=== PATIENT | male | born 1930 | race Caucasian/White ===

== ENCOUNTER 2016-11-11 08:44 | Emergency (ER) | payer OTHER ==
[2016-11-11 09:16] VITALS: TEMP 96
[2016-11-11 09:45] VITALS: BP 168/80; PULSE 75; RESP 18; O2SAT 94
== END 2016-11-11 09:40 | disposition home or self-care (01) | DRG 696 ==
LOC: ED 08:44
DX: R33.9 Retention of urine, unspecified (principal)
CPT/HCPCS: 51798; 99283

== ENCOUNTER 2017-05-17 19:18 | Inpatient (IN) | payer OTHER ==
[2017-05-17] MEDS ORDERED: ALBUTEROL/IPRATROPIUM 1 VIAL SOL INH ONE (19:51)
[2017-05-17] MEDS ORDERED: ALBUTEROL/IPRATROPIUM 1 VIAL SOL ONE (19:52)
[2017-05-17 20:04] LABS: BASOPHILS % (AUTO) 1 % (0-3); EOSINOPHILS % (AUTO) 1 % (0-9); HEMATOCRIT 37 % (39-53); MEAN CORPUSCULAR HGB CONC 33.9 gm/dl (32.0-36.0); MEAN CORPUSCULAR VOLUME 85 fL (80-100); MONOCYTES % (AUTO) 8.6 % (0-12); NEUTROPHILS % (AUTO) 80.7 % (37-80)
[2017-05-17 20:18] LABS: ALBUMIN 3.3 gm/dl (3.4-5.0); CALCIUM 8.1 mg/dl (8.5-10.1); POTASSIUM 4.1 mMol/L (3.5-5.1)
[2017-05-17] MEDS ORDERED: ALBUTEROL NEB 1.25 MG/3 ML SOL INH PRN (21:27)
[2017-05-17] MEDS ORDERED: TDAP VACCINE 0.5 ML SUS IM ONE (21:29)
[2017-05-17] MEDS ORDERED: ONDANSETRON 4 MG ODT BU PRN (21:32)
[2017-05-17] MEDS: TAMSULOSIN HYDROCHLORIDE 0.4 MG CAP PO SCH (22:20)
[2017-05-17] MEDS: SOLUMEDROL 125 MG/2 ML 125 MG/2 ML PDS IV SCH (22:20)
[2017-05-17] MEDS: ACETAMINOPHEN 325 MG PO PRN (22:28)
[2017-05-18] MEDS ORDERED: ALBUTEROL NEB SOL 2.5MG/3ML 1 VIAL SOL ONE (02:33)
[2017-05-18] MEDS: ALBUTEROL NEB SOL 2.5MG/3ML 1 VIAL SOL NEB PRN ×3 (02:38→15:54)
[2017-05-18] MEDS ORDERED: FUROSEMIDE 20mg SOL IV ONE (09:06)
[2017-05-18] MEDS: SOLUMEDROL 125 MG/2 ML 125 MG/2 ML PDS IV SCH (09:15)
[2017-05-18] MEDS: SODIUM CHLORIDE 0.9% FLUSH 10 ML SOL IV SCH ×2 (09:23→17:39)
[2017-05-18] MEDS: BUDESONIDE/FORMOTEROL 160/4.5 AER INH SCH (09:51)
[2017-05-18] MEDS: TIOTROPIUM BROMIDE 18 MCG CAP INH SCH (09:51)
[2017-05-18] MEDS: PREDNISONE 20 MG TAB PO SCH (09:53)
[2017-05-18 13:31] LABS: CALCIUM 8.5 mg/dl (8.5-10.1); POTASSIUM 3.9 mMol/L (3.5-5.1)
[2017-05-18] MEDS: NOVOLOG FLEXPEN SC SCH ×2 (17:40→20:49)
[2017-05-18] MEDS: TAMSULOSIN HYDROCHLORIDE 0.4 MG CAP PO SCH (20:44)
[2017-05-18] MEDS: ACETAMINOPHEN 325 MG PO PRN (20:45)
[2017-05-19 01:18] VITALS: TEMP 97.7
[2017-05-19] MEDS: ALBUTEROL NEB SOL 2.5MG/3ML 1 VIAL SOL NEB PRN (04:29)
[2017-05-19] MEDS: SODIUM CHLORIDE 0.9% FLUSH 10 ML SOL IV SCH ×2 (04:39→11:07)
[2017-05-19] MEDS: NOVOLOG FLEXPEN SC SCH ×2 (06:54→11:54)
[2017-05-19 07:14] LABS: CALCIUM 8.1 mg/dl (8.5-10.1); POTASSIUM 4.3 mMol/L (3.5-5.1)
[2017-05-19 07:21] LABS: BASOPHILS % (AUTO) 0 % (0-3); EOSINOPHILS % (AUTO) 0 % (0-9); HEMATOCRIT 38 % (39-53); MEAN CORPUSCULAR HGB CONC 34.4 gm/dl (32.0-36.0); MEAN CORPUSCULAR VOLUME 87 fL (80-100); MONOCYTES % (AUTO) 10.6 % (0-12); NEUTROPHILS % (AUTO) 75.3 % (37-80)
[2017-05-19 08:32] VITALS: BP 124/76; PULSE 79; RESP 16
[2017-05-19] MEDS: PREDNISONE 20 MG TAB PO SCH (08:48)
[2017-05-19] MEDS: BUDESONIDE/FORMOTEROL 160/4.5 AER INH SCH (08:49)
[2017-05-19] MEDS: TIOTROPIUM BROMIDE 18 MCG CAP INH SCH (08:50)
[2017-05-19] MEDS ORDERED: PNEUMOC 13-VAL CONJ-DIP CRM/PF 0.5 ML SYRINGE IM ONE (11:50)
[2017-05-19 12:01] VITALS: O2SAT 89
== END 2017-05-19 13:10 | disposition home or self-care (01) | DRG 191 ==
LOC: ED 19:18 → UNDOADMIN 20:39 → ACUTE CARE 20:39
PROVIDERS: ADMIT Family Medicine; ATTEND Family Medicine
PROC: 2W3CX1Z Immobilization of Right Lower Arm using Splint (ICD-10-PCS; principal; 2017-05-18)
DX: J44.1 Chronic obstructive pulmonary disease with (acute) exacerbation (principal); S42.411A Displaced simple supracondylar fracture without intercondylar fracture of right humerus, initial encounter for closed fracture; E11.65 Type 2 diabetes mellitus with hyperglycemia; J06.9 Acute upper respiratory infection, unspecified; S01.112A Laceration without foreign body of left eyelid and periocular area, initial encounter; W19.XXXA Unspecified fall, initial encounter
CPT/HCPCS: 36415; 71045; 73070; 80048; 80053; 82962; 85025; 90715; 93005; 94150; 94640; 94760; 99222; 99284; J1940; J2930; J7603; J7620; A6232; A6402; J1815

== ENCOUNTER 2017-05-25 09:00 | Outpatient (CLI) | payer OTHER | END 2017-05-25 09:01 | disposition home or self-care (01) | DRG 561 | LOC: CONVCARE 09:00 | PROVIDERS: ATTEND Orthopaedic Surgery | DX: S42.411D Displaced simple supracondylar fracture without intercondylar fracture of right humerus, subsequent encounter for fracture with routine healing (principal) | CPT/HCPCS: 73070 ==

== ENCOUNTER 2017-06-22 09:26 | Outpatient (CLI) | payer OTHER | END 2017-06-22 09:27 | disposition home or self-care (01) | DRG 561 | LOC: CONVCARE 09:26 | PROVIDERS: ATTEND Orthopaedic Surgery | DX: S42.411D Displaced simple supracondylar fracture without intercondylar fracture of right humerus, subsequent encounter for fracture with routine healing (principal) | CPT/HCPCS: 73070 ==

== ENCOUNTER 2017-08-21 10:03 | Inpatient (IN) | payer OTHER ==
[2017-08-21] MEDS ORDERED: FUROSEMIDE 20mg SOL IV ONE (10:30)
[2017-08-21 10:54] LABS: HEMATOCRIT 39 % (39-53); HEMOGLOBIN 12.5 gm/dl (13.5-17.7); MEAN CORPUSCULAR HEMOGLOBIN 27.7 pg (27.0-32.0); MEAN CORPUSCULAR HGB CONC 32.3 gm/dl (32.0-36.0); MEAN CORPUSCULAR VOLUME 86 fL (80-100)
[2017-08-21 11:01] LABS: ALBUMIN 3.3 gm/dl (3.4-5.0); BILIRUBIN,TOTAL 0.8 mg/dl (0.2-1.0); CALCIUM 8.2 mg/dl (8.5-10.1); CARBON DIOXIDE 25.3 mEq/L (21-32); CREATININE 1.34 mg/dl (0.80-1.30); TOTAL PROTEIN 6.6 gm/dl (6.4-8.2); TROP I 0.059 ng/ml (0.000-0.056)
[2017-08-21 11:22] LABS: ANISOCYTOSIS SLIGHT AMT; BAND NEUTROPHILS % (MANUAL) 7 %; BASOPHILS % (MANUAL) 0 % (0-3); EOSINOPHILS % (MANUAL) 0 % (0-9); MONOCYTES % (MANUAL) 10 % (0-12); NEUTROPHILS % (MANUAL) 61 % (37-80); OVALOCYTES PRESENT; POIKILOCYTOSIS SLIGHT AMT
[2017-08-21 11:23] LABS: LYMPHOCYTES % (MANUAL) 22 % (10-50)
[2017-08-21] MEDS: SODIUM CHLORIDE 0.9% FLUSH 10 ML SOL IV SCH ×3 (11:26→18:50)
[2017-08-21] MEDS ORDERED: FUROSEMIDE 20mg SOL IV SCH (15:30)
[2017-08-21] MEDS: ALBUTEROL HFA 60 PUFF/INHALER INH PRN (16:16)
[2017-08-21] MEDS ORDERED: TEMAZEPAM 7.5 MG CAP PO PRN (18:33)
[2017-08-21] MEDS: TAMSULOSIN HYDROCHLORIDE 0.4 MG CAP PO SCH (20:41)
[2017-08-21] MEDS: BUDESONIDE/FORMOTEROL 160/4.5 AER INH SCH (20:41)
[2017-08-21] MEDS: TEMAZEPAM 15MG 15 MG CAP PO PRN (21:56)
[2017-08-22] MEDS: SODIUM CHLORIDE 0.9% FLUSH 10 ML SOL IV SCH ×3 (02:28→20:26)
[2017-08-22 07:42] LABS: CALCIUM 8.2 mg/dl (8.5-10.1); CARBON DIOXIDE 30.4 mEq/L (21-32); CREATININE 1.4 mg/dl (0.80-1.30); POTASSIUM 3.6 mMol/L (3.5-5.1)
[2017-08-22] MEDS: FUROSEMIDE 40 MG TAB PO SCH (08:14)
[2017-08-22] MEDS: PANTOPRAZOLE SODIUM 40 MG ECT PO SCH (08:14)
[2017-08-22] MEDS: BUDESONIDE/FORMOTEROL 160/4.5 AER INH SCH ×2 (08:15→20:26)
[2017-08-22] MEDS: TIOTROPIUM BROMIDE 18 MCG CAP INH SCH (08:16)
[2017-08-22] MEDS: ASPIRIN 325 MG TAB PO SCH (08:16)
[2017-08-22] MEDS: MULTIVITAMIN2 1 EA TAB PO SCH (08:16)
[2017-08-22] MEDS ORDERED: METOPROLOL SUCCINATE 50 MG ER TAB PO SCH (09:00)
[2017-08-22] MEDS: METOPROLOL SUCCINATE 50 MG ER TAB PO SCH (09:52)
[2017-08-22] MEDS: FUROSEMIDE 40 MG SOL IV ONE ×2 (10:00→15:14)
[2017-08-22] MEDS ORDERED: FUROSEMIDE 40 MG SOL IV ONE (10:00)
[2017-08-22 18:03] LABS: CALCIUM 8.1 mg/dl (8.5-10.1); CARBON DIOXIDE 31.1 mEq/L (21-32); CREATININE 1.44 mg/dl (0.80-1.30); POTASSIUM 3.7 mMol/L (3.5-5.1)
[2017-08-22] MEDS: TAMSULOSIN HYDROCHLORIDE 0.4 MG CAP PO SCH (20:27)
[2017-08-23] MEDS: ALBUTEROL HFA 60 PUFF/INHALER INH PRN (01:30)
[2017-08-23] MEDS: SODIUM CHLORIDE 0.9% FLUSH 10 ML SOL IV SCH ×4 (05:17→20:32)
[2017-08-23 07:37] LABS: CARBON DIOXIDE 32.7 mEq/L (21-32); CREATININE 1.36 mg/dl (0.80-1.30); POTASSIUM 3.7 mMol/L (3.5-5.1)
[2017-08-23 07:39] LABS: TROP I 0.136 ng/ml (0.000-0.056)
[2017-08-23] MEDS: BUDESONIDE/FORMOTEROL 160/4.5 AER INH SCH ×2 (08:04→20:32)
[2017-08-23] MEDS ORDERED: METOPROLOL SUCCINATE 50 MG TER PO ONE (08:32)
[2017-08-23] MEDS ORDERED: DOCUSATE SODIUM 100 MG SGL PO PRN (08:32)
[2017-08-23] MEDS ORDERED: FUROSEMIDE 20mg SOL IV ONE ×2 (08:32→16:00)
[2017-08-23] MEDS: ASPIRIN 325 MG TAB PO SCH (10:13)
[2017-08-23] MEDS: METOPROLOL SUCCINATE 50 MG ER TAB PO SCH (10:13)
[2017-08-23] MEDS: PANTOPRAZOLE SODIUM 40 MG ECT PO SCH (10:13)
[2017-08-23] MEDS: MULTIVITAMIN2 1 EA TAB PO SCH (10:13)
[2017-08-23] MEDS: FUROSEMIDE 40 MG TAB PO SCH (10:13)
[2017-08-23] MEDS: TIOTROPIUM BROMIDE 18 MCG CAP INH SCH (10:13)
[2017-08-23] MEDS: TEMAZEPAM 15MG 15 MG CAP PO PRN (20:32)
[2017-08-23] MEDS: TAMSULOSIN HYDROCHLORIDE 0.4 MG CAP PO SCH (20:33)
[2017-08-24] MEDS: SODIUM CHLORIDE 0.9% FLUSH 10 ML SOL IV SCH ×3 (07:01→22:40)
[2017-08-24 07:30] LABS: CALCIUM 7.9 mg/dl (8.5-10.1); CARBON DIOXIDE 32.8 mEq/L (21-32); CREATININE 1.43 mg/dl (0.80-1.30); POTASSIUM 3.4 mMol/L (3.5-5.1)
[2017-08-24 07:37] LABS: HEMATOCRIT 38 % (39-53); HEMOGLOBIN 12.2 gm/dl (13.5-17.7); MEAN CORPUSCULAR HEMOGLOBIN 27.4 pg (27.0-32.0); MEAN CORPUSCULAR VOLUME 86 fL (80-100)
[2017-08-24 08:12] LABS: BAND NEUTROPHILS % (MANUAL) 4 %; LYMPHOCYTES % (MANUAL) 40 % (10-50); MONOCYTES % (MANUAL) 8 % (0-12); NEUTROPHILS % (MANUAL) 48 % (37-80)
[2017-08-24 08:13] LABS: ANISOCYTOSIS SLIGHT AMT; BASOPHILS % (MANUAL) 0 % (0-3); EOSINOPHILS % (MANUAL) 0 % (0-9); OVALOCYTES PRESENT; POIKILOCYTOSIS SLIGHT AMT
[2017-08-24] MEDS: FUROSEMIDE 40 MG TAB PO SCH (08:29)
[2017-08-24] MEDS: ASPIRIN 325 MG TAB PO SCH (08:29)
[2017-08-24] MEDS: TIOTROPIUM BROMIDE 18 MCG CAP INH SCH (08:30)
[2017-08-24] MEDS: BUDESONIDE/FORMOTEROL 160/4.5 AER INH SCH ×2 (08:30→20:23)
[2017-08-24] MEDS: PANTOPRAZOLE SODIUM 40 MG ECT PO SCH (08:30)
[2017-08-24] MEDS: MULTIVITAMIN2 1 EA TAB PO SCH (08:30)
[2017-08-24] MEDS ORDERED: METOPROLOL SUCCINATE 50 MG ER TAB PO SCH (08:33)
[2017-08-24] MEDS: METOPROLOL SUCCINATE 50 MG ER TAB PO SCH ×2 (09:45→13:51)
[2017-08-24] MEDS: POTASSIUM CHLORIDE 10 MEQ TER PO SCH ×2 (09:45→20:23)
[2017-08-24] MEDS: TAMSULOSIN HYDROCHLORIDE 0.4 MG CAP PO SCH (20:23)
[2017-08-24] MEDS: TEMAZEPAM 15MG 15 MG CAP PO PRN (21:00)
[2017-08-25] MEDS: SODIUM CHLORIDE 0.9% FLUSH 10 ML SOL IV SCH ×4 (02:38→20:24)
[2017-08-25 07:09] LABS: BASOPHILS % (AUTO) 1 % (0-3); EOSINOPHILS % (AUTO) 2 % (0-9); HEMATOCRIT 39 % (39-53); HEMOGLOBIN 12.7 gm/dl (13.5-17.7); LYMPHOCYTES % (AUTO) 34.2 % (10-50); MEAN CORPUSCULAR HEMOGLOBIN 27.4 pg (27.0-32.0); MEAN CORPUSCULAR HGB CONC 32.2 gm/dl (32.0-36.0); MEAN CORPUSCULAR VOLUME 85 fL (80-100); MONOCYTES % (AUTO) 9.2 % (0-12); NEUTROPHILS % (AUTO) 53.4 % (37-80)
[2017-08-25 07:13] LABS: CALCIUM 7.9 mg/dl (8.5-10.1); CARBON DIOXIDE 32.4 mEq/L (21-32); CREATININE 1.44 mg/dl (0.80-1.30); POTASSIUM 3.8 mMol/L (3.5-5.1)
[2017-08-25] MEDS: BUDESONIDE/FORMOTEROL 160/4.5 AER INH SCH ×2 (08:30→20:04)
[2017-08-25] MEDS: TIOTROPIUM BROMIDE 18 MCG CAP INH SCH (08:31)
[2017-08-25] MEDS: POTASSIUM CHLORIDE 10 MEQ TER PO SCH (08:35)
[2017-08-25] MEDS: PANTOPRAZOLE SODIUM 40 MG ECT PO SCH (08:35)
[2017-08-25] MEDS: ASPIRIN 325 MG TAB PO SCH (08:35)
[2017-08-25] MEDS: FUROSEMIDE 40 MG TAB PO SCH (08:35)
[2017-08-25] MEDS: METOPROLOL SUCCINATE 50 MG ER TAB PO SCH (08:36)
[2017-08-25] MEDS: MULTIVITAMIN2 1 EA TAB PO SCH (08:36)
[2017-08-25] MEDS: TAMSULOSIN HYDROCHLORIDE 0.4 MG CAP PO SCH (20:04)
[2017-08-25] MEDS: TEMAZEPAM 15MG 15 MG CAP PO PRN (22:13)
[2017-08-26] MEDS: SODIUM CHLORIDE 0.9% FLUSH 10 ML SOL IV SCH ×2 (06:21→18:24)
[2017-08-26] MEDS: FUROSEMIDE 40 MG TAB PO SCH (08:33)
[2017-08-26] MEDS: PANTOPRAZOLE SODIUM 40 MG ECT PO SCH (08:33)
[2017-08-26] MEDS: ASPIRIN 325 MG TAB PO SCH (08:33)
[2017-08-26] MEDS: MULTIVITAMIN2 1 EA TAB PO SCH (08:33)
[2017-08-26] MEDS: BUDESONIDE/FORMOTEROL 160/4.5 AER INH SCH ×2 (08:33→21:25)
[2017-08-26] MEDS: METOPROLOL SUCCINATE 50 MG ER TAB PO SCH (08:34)
[2017-08-26] MEDS: TIOTROPIUM BROMIDE 18 MCG CAP INH SCH (08:38)
[2017-08-26] MEDS: POTASSIUM CHLORIDE 10 MEQ TER PO SCH (08:40)
[2017-08-26] MEDS: TAMSULOSIN HYDROCHLORIDE 0.4 MG CAP PO SCH (20:56)
[2017-08-26 21:36] VITALS: O2SAT 97
[2017-08-26] MEDS: TEMAZEPAM 15MG 15 MG CAP PO PRN (22:55)
[2017-08-27 06:49] LABS: CALCIUM 8.2 mg/dl (8.5-10.1); CARBON DIOXIDE 29.6 mEq/L (21-32); CREATININE 1.54 mg/dl (0.80-1.30); POTASSIUM 4.2 mMol/L (3.5-5.1)
[2017-08-27 07:53] LABS: HEMATOCRIT 38 % (39-53); HEMOGLOBIN 12.5 gm/dl (13.5-17.7); MEAN CORPUSCULAR HEMOGLOBIN 28.1 pg (27.0-32.0); MEAN CORPUSCULAR HGB CONC 32.6 gm/dl (32.0-36.0); MEAN CORPUSCULAR VOLUME 86 fL (80-100)
[2017-08-27 08:05] VITALS: BP 140/74; PULSE 89; RESP 32; TEMP 97.2
[2017-08-27 08:17] LABS: ANISOCYTOSIS SLIGHT AMT; BAND NEUTROPHILS % (MANUAL) 5 %; BASOPHILS % (MANUAL) 0 % (0-3); BURR CELLS PRESENT; EOSINOPHILS % (MANUAL) 6 % (0-9); LYMPHOCYTES % (MANUAL) 29 % (10-50); MONOCYTES % (MANUAL) 10 % (0-12); NEUTROPHILS % (MANUAL) 50 % (37-80); OVALOCYTES PRESENT; PLATELET MORPHOLOGY COMMENT ADEQUATE; POIKILOCYTOSIS MOD AMT
[2017-08-27] MEDS ORDERED: FUROSEMIDE 40 MG TAB PO SCH (08:51)
[2017-08-27] MEDS: POTASSIUM CHLORIDE 10 MEQ TER PO SCH (09:20)
[2017-08-27] MEDS: BUDESONIDE/FORMOTEROL 160/4.5 AER INH SCH (09:20)
[2017-08-27] MEDS: ASPIRIN 325 MG TAB PO SCH (09:21)
[2017-08-27] MEDS: TIOTROPIUM BROMIDE 18 MCG CAP INH SCH (09:21)
[2017-08-27] MEDS: PANTOPRAZOLE SODIUM 40 MG ECT PO SCH (09:21)
[2017-08-27] MEDS: MULTIVITAMIN2 1 EA TAB PO SCH (09:21)
[2017-08-27] MEDS: METOPROLOL SUCCINATE 50 MG ER TAB PO SCH (09:21)
== END 2017-08-27 13:00 | disposition home or self-care (01) | DRG 310 ==
LOC: ACUTE CARE 10:03
PROVIDERS: ADMIT Family Medicine; ATTEND Family Medicine
PROC: F01 Physical Rehabilitation and Diagnostic Audiology, Rehabilitation, Motor and/or Nerve Function Assessment (ICD-10-PCS; principal; 2017-08-25)
PROC: F01 Physical Rehabilitation and Diagnostic Audiology, Rehabilitation, Motor and/or Nerve Function Assessment (ICD-10-PCS; 2017-08-25)
PROC: F02Z1ZZ Dressing Assessment (ICD-10-PCS; 2017-08-25)
PROC: F02Z3ZZ Grooming/Personal Hygiene Assessment (ICD-10-PCS; 2017-08-25)
PROC: F02Z2ZZ Feeding/Eating Assessment (ICD-10-PCS; 2017-08-25)
DX: I48.91 Unspecified atrial fibrillation (principal); I50.9 Heart failure, unspecified; E11.9 Type 2 diabetes mellitus without complications; J44.9 Chronic obstructive pulmonary disease, unspecified; R06.02 Shortness of breath; R35.8 Other polyuria
CPT/HCPCS: 36415; 71046; 80048; 80053; 83880; 84484; 85007; 85025; 85027; 93005; 93012; 94762; J1940; A9270; A9270-GY

== ENCOUNTER 2018-01-18 10:39 | Emergency (ER) | payer OTHER ==
[2018-01-18 10:57] VITALS: TEMP 98.2
[2018-01-18 11:09] LABS: BASOPHILS % (AUTO) 1 % (0-3); EOSINOPHILS % (AUTO) 0 % (0-9); HEMATOCRIT 41 % (39-53); LYMPHOCYTES % (AUTO) 24.3 % (10-50); MEAN CORPUSCULAR HEMOGLOBIN 28.1 pg (27.0-32.0); MEAN CORPUSCULAR HGB CONC 31.4 gm/dl (32.0-36.0); MEAN CORPUSCULAR VOLUME 90 fL (80-100); MONOCYTES % (AUTO) 10.7 % (0-12); NEUTROPHILS % (AUTO) 63.6 % (37-80)
[2018-01-18] MEDS ORDERED: ALBUTEROL/IPRATROPIUM 1 VIAL SOL ONE (11:25)
[2018-01-18] MEDS ORDERED: ALBUTEROL/IPRATROPIUM 1 VIAL SOL INH ONE (11:25)
[2018-01-18 11:28] LABS: ALBUMIN 3.5 gm/dl (3.4-5.0); BILIRUBIN,TOTAL 1.7 mg/dl (0.2-1.0); CALCIUM 8.5 mg/dl (8.5-10.1); CARBON DIOXIDE 26.6 mEq/L (21-32); CREATININE 1.67 mg/dl (0.80-1.30); POTASSIUM 4.3 mMol/L (3.5-5.1); TOTAL PROTEIN 6.9 gm/dl (6.4-8.2); TROP I 0.093 ng/ml (0.000-0.056)
[2018-01-18 13:40] VITALS: BP 146/68; PULSE 72; RESP 28; O2SAT 89
== END 2018-01-18 12:58 | disposition home or self-care (01) | DRG 293 ==
LOC: ED 10:39
DX: I50.814 Right heart failure due to left heart failure (principal)
CPT/HCPCS: 71045; 80053; 83880; 84484; 85025; 85378; 93005; 99284

== ENCOUNTER 2018-04-01 14:29 | Observation (INO) | payer OTHER ==
[2018-04-01] MEDS ORDERED: ALBUTEROL/IPRATROPIUM 1 VIAL SOL INH ONE (14:42)
[2018-04-01] MEDS ORDERED: SOLUMEDROL 125 MG/2 ML 125 MG/2 ML PDS IV ONE (14:56)
[2018-04-01] MEDS ORDERED: ALBUTEROL/IPRATROPIUM 1 VIAL SOL ONE (14:57)
[2018-04-01] MEDS ORDERED: CEFTRIAXONE 1 GM PDS ONE (14:57)
[2018-04-01] MEDS ORDERED: SOLUMEDROL 125 MG/2 ML 125 MG/2 ML PDS ONE (14:57)
[2018-04-01] MEDS ORDERED: CEFTRIAXONE 1 GM PDS 2 GM in SODIUM CHLORIDE 0.9% 100 ML 100 ML IV SCH (15:00)
[2018-04-01 15:19] LABS: BASOPHILS % (AUTO) 1 % (0-3); EOSINOPHILS % (AUTO) 1 % (0-9); HEMATOCRIT 47 % (39-53); HEMOGLOBIN 14.5 gm/dl (13.5-17.7); LYMPHOCYTES % (AUTO) 25.9 % (10-50); MEAN CORPUSCULAR HEMOGLOBIN 27.4 pg (27.0-32.0); MEAN CORPUSCULAR HGB CONC 30.8 gm/dl (32.0-36.0); MEAN CORPUSCULAR VOLUME 89 fL (80-100); MONOCYTES % (AUTO) 9.5 % (0-12)
[2018-04-01 15:23] LABS: ALBUMIN 3.1 gm/dl (3.4-5.0); BILIRUBIN,TOTAL 1.3 mg/dl (0.2-1.0); CALCIUM 8.2 mg/dl (8.5-10.1); CARBON DIOXIDE 32.9 mEq/L (21-32); CREATININE 1.74 mg/dl (0.80-1.30); POTASSIUM 4.2 mMol/L (3.5-5.1); TOTAL PROTEIN 6.8 gm/dl (6.4-8.2)
[2018-04-01 15:24] LABS: TROP I 0.089 ng/ml (0.000-0.056)
[2018-04-01] MEDS ORDERED: FUROSEMIDE 40 MG SOL IV ONE ×2 (15:47→18:58)
[2018-04-01] MEDS ORDERED: AZITHROMYCIN 500 MG PDS 500 MG in SODIUM CHLORIDE 0.9% 250 ML 250 ML IV ONE (15:52)
[2018-04-01] MEDS ORDERED: AZITHROMYCIN 500 MG PDS IV ONE (15:54)
[2018-04-01 16:00] LABS: APPEARANCE,URINE Slightly Cloudy; BILIRUBIN,URINE 1+ (NEGATIVE); COLOR,URINE Yellow; GLUCOSE, URINE (UA) NEGATIVE (NEGATIVE); KETONES,URINE NEGATIVE (NEGATIVE); LEUKOCYTE ESTERASE ,URINE 2+ (NEGATIVE); NITRATE,URINE POSITIVE (NEGATIVE); OCCULT BLOOD,URINE TRACE INTACT (NEG-TRACE); UROBILINOGEN,URINE 0.2 (0.2-1.0 EU)
[2018-04-01] MEDS ORDERED: FUROSEMIDE 40 MG SOL ONE ×2 (16:02→18:59)
[2018-04-01] MEDS ORDERED: ONDANSETRON HCL 4 MG/2 ML SOL IV ONE (16:15)
[2018-04-01] MEDS ORDERED: ONDANSETRON HCL 4 MG/2 ML SOL ONE (16:15)
[2018-04-01 16:21] LABS: ICTOTEST,URINE NEGATIVE (NEGATIVE)
[2018-04-01 16:22] LABS: BACTERIA 3+ (< 1+); CRYSTALS 4-6 TRIPLE PHOSPHATE (0-3 AVE/HPF); EPITHELIAL CELLS 0-2 (SQUAMOUS); RBC,URINE 0-4 (0-3AV/HPF); WBC,URINE 40-45 (0-5AV/HPF)
[2018-04-01] MEDS ORDERED: SODIUM CHLORIDE 0.9% FLUSH 10 ML SOL IV PRN (17:27)
[2018-04-01] MEDS ORDERED: OMEPRAZOLE 20 MG CAPSULE PO PRN (21:27)
[2018-04-01] MEDS ORDERED: ALBUTEROL NEB SOL 2.5MG/3ML 1 VIAL SOL NEB PRN (21:27)
[2018-04-01] MEDS ORDERED: ENOXAPARIN 40 MG SOL SC SCH ×2 (21:30→23:00)
[2018-04-01] MEDS ORDERED: PANTOPRAZOLE SODIUM 40 MG ECT PO PRN (22:15)
[2018-04-01] MEDS: TAMSULOSIN HYDROCHLORIDE 0.4 MG CAP PO SCH (22:52)
[2018-04-01] MEDS: ENOXAPARIN 80 MG SOL SC SCH (22:53)
[2018-04-01] MEDS ORDERED: TRAZODONE HYDROCHLORIDE 50 MG TAB PO PRN (23:34)
[2018-04-02] MEDS: SODIUM CHLORIDE 0.9% FLUSH 10 ML SOL IV SCH ×3 (03:30→18:53)
[2018-04-02] MEDS ORDERED: PANTOPRAZOLE SODIUM 40 MG ECT PO PRN (06:08)
[2018-04-02 07:17] LABS: BASOPHILS % (AUTO) 0 % (0-3); EOSINOPHILS % (AUTO) 0 % (0-9); HEMATOCRIT 43 % (39-53); HEMOGLOBIN 13.5 gm/dl (13.5-17.7); LYMPHOCYTES % (AUTO) 27.9 % (10-50); MEAN CORPUSCULAR HEMOGLOBIN 27.8 pg (27.0-32.0); MEAN CORPUSCULAR HGB CONC 31.4 gm/dl (32.0-36.0); MEAN CORPUSCULAR VOLUME 88 fL (80-100); MONOCYTES % (AUTO) 3.7 % (0-12); NEUTROPHILS % (AUTO) 67.9 % (37-80)
[2018-04-02 07:25] LABS: CALCIUM 7.7 mg/dl (8.5-10.1); CREATININE 1.87 mg/dl (0.80-1.30); POTASSIUM 3.6 mMol/L (3.5-5.1)
[2018-04-02 07:28] LABS: CARBON DIOXIDE 31.8 mEq/L (21-32)
[2018-04-02] MEDS ORDERED: FUROSEMIDE 40 MG SOL IV SCH ×2 (09:00)
[2018-04-02] MEDS: TIOTROPIUM BROMIDE 18 MCG CAP INH SCH (09:15)
[2018-04-02] MEDS: BUDESONIDE/FORMOTEROL 160/4.5 AER INH SCH ×2 (09:16→21:07)
[2018-04-02] MEDS: FUROSEMIDE 100 MG SOL IV SCH ×2 (09:21→13:59)
[2018-04-02] MEDS: ASPIRIN 325 MG TAB PO SCH (09:30)
[2018-04-02] MEDS: KERATIN PO SCH (09:31)
[2018-04-02] MEDS: FISH OIL 500 MG CAP PO SCH (09:31)
[2018-04-02] MEDS: BIOTIN PO SCH (09:31)
[2018-04-02] MEDS: POTASSIUM CHLORIDE 10 MEQ TER PO SCH (09:32)
[2018-04-02] MEDS: METOPROLOL SUCCINATE 50 MG ER TAB PO SCH ×3 (09:32→17:52)
[2018-04-02] MEDS: UBIDECARENONE 20 MG PO SCH (09:34)
[2018-04-02] MEDS: METOLAZONE 2.5 MG TABLET PO SCH ×2 (09:43→14:00)
[2018-04-02] MEDS ORDERED: CEFTRIAXONE 1 GM PDS 2 GM in SODIUM CHLORIDE 0.9% 100 ML 100 ML IV SCH (15:00)
[2018-04-02] MEDS ORDERED: AZITHROMYCIN 500 MG PDS IV SCH (16:00)
[2018-04-02 17:23] LABS: CALCIUM 8.1 mg/dl (8.5-10.1); CARBON DIOXIDE 31.6 mEq/L (21-32); CREATININE 2.31 mg/dl (0.80-1.30); POTASSIUM 4.5 mMol/L (3.5-5.1)
[2018-04-02] MEDS ORDERED: FINASTERIDE 5 MG TAB PO SCH (21:00)
[2018-04-02] MEDS: TAMSULOSIN HYDROCHLORIDE 0.4 MG CAP PO SCH (21:07)
[2018-04-02] MEDS ORDERED: ASPIRIN 325 MG TAB PO SCH (21:27)
[2018-04-02] MEDS: ENOXAPARIN 80 MG SOL SC SCH (22:21)
[2018-04-03 07:23] LABS: CALCIUM 7.9 mg/dl (8.5-10.1)
[2018-04-03 07:29] LABS: CARBON DIOXIDE 33.6 mEq/L (21-32); POTASSIUM 3.9 mMol/L (3.5-5.1)
[2018-04-03] MEDS: SODIUM CHLORIDE 0.9% FLUSH 10 ML SOL IV SCH ×2 (07:34→13:53)
[2018-04-03 07:35] LABS: BASOPHILS % (AUTO) 0 % (0-3); EOSINOPHILS % (AUTO) 0 % (0-9); HEMATOCRIT 44 % (39-53); HEMOGLOBIN 13.5 gm/dl (13.5-17.7); LYMPHOCYTES % (AUTO) 15.3 % (10-50); MEAN CORPUSCULAR HEMOGLOBIN 27.3 pg (27.0-32.0); MEAN CORPUSCULAR VOLUME 88 fL (80-100); NEUTROPHILS % (AUTO) 77.4 % (37-80)
[2018-04-03] MEDS: FISH OIL 500 MG CAP PO SCH (08:49)
[2018-04-03] MEDS: ASPIRIN 325 MG TAB PO SCH (08:49)
[2018-04-03] MEDS: KERATIN PO SCH (08:49)
[2018-04-03] MEDS: BIOTIN PO SCH (08:49)
[2018-04-03] MEDS: TIOTROPIUM BROMIDE 18 MCG CAP INH SCH (08:50)
[2018-04-03] MEDS: POTASSIUM CHLORIDE 10 MEQ TER PO SCH (08:50)
[2018-04-03] MEDS: BUDESONIDE/FORMOTEROL 160/4.5 AER INH SCH (08:51)
[2018-04-03] MEDS: UBIDECARENONE 20 MG PO SCH (08:52)
[2018-04-03] MEDS: METOLAZONE 2.5 MG TABLET PO SCH (08:53)
[2018-04-03] MEDS: METOPROLOL SUCCINATE 50 MG ER TAB PO SCH (08:53)
[2018-04-03 09:03] VITALS: TEMP 97.7
[2018-04-03] MEDS: FUROSEMIDE 40 MG TAB PO SCH ×2 (10:16→11:54)
[2018-04-03 10:39] VITALS: RESP 18
[2018-04-03 13:53] VITALS: BP 136/70; PULSE 76; O2SAT 96
== END 2018-04-03 13:20 | disposition home or self-care (01) | DRG 204 ==
LOC: ED 14:29 → UNDOADMOB 20:08 → ACUTE CARE 20:08
PROVIDERS: ADMIT Internal Medicine; ATTEND Internal Medicine
PROC: F01L5ZZ Range of Motion and Joint Integrity Assessment of Musculoskeletal System - Lower Back / Lower Extremity (ICD-10-PCS; principal; 2018-04-02)
PROC: F01L0ZZ Muscle Performance Assessment of Musculoskeletal System - Lower Back / Lower Extremity (ICD-10-PCS; 2018-04-02)
PROC: F01ZBZZ Bed Mobility Assessment (ICD-10-PCS; 2018-04-02)
DX: R06.02 Shortness of breath (principal); J44.1 Chronic obstructive pulmonary disease with (acute) exacerbation; I50.814 Right heart failure due to left heart failure; I48.91 Unspecified atrial fibrillation; I10 Essential (primary) hypertension
CPT/HCPCS: 36415; 71045; 80048; 80053; 81001; 83880; 84484; 85025; 87040; 87077; 87088; 87186; 93005; 94150; 94762; 96365; 96366; 96374; 96375; 99220; 99285; J0456; J0696; J1650; J1940; J2405; J2930; J7613; A9270; A9270-GY

== ENCOUNTER 2018-05-11 23:22 | Emergency (ER) | payer OTHER ==
[2018-05-11] MEDS ORDERED: ALBUTEROL/IPRATROPIUM 1 VIAL SOL INH ONE (23:28)
[2018-05-11] MEDS ORDERED: SOLUMEDROL 125 MG/2 ML 125 MG/2 ML PDS IV ONE (23:28)
[2018-05-11] MEDS ORDERED: ALBUTEROL/IPRATROPIUM 1 VIAL SOL ONE (23:30)
[2018-05-11] MEDS ORDERED: SOLUMEDROL 125 MG/2 ML 125 MG/2 ML PDS ONE (23:30)
[2018-05-11] MEDS ORDERED: PREDNISOLONE SODIUM PHOSPHAT 5 MG/5 ML SOL PO ONE (23:48)
[2018-05-11] MEDS ORDERED: ONDANSETRON HCL 4 MG/2 ML SOL IV ONE ×2 (23:56→23:58)
[2018-05-11] MEDS ORDERED: ONDANSETRON HCL 4 MG/2 ML SOL ONE (23:57)
[2018-05-12] MEDS ORDERED: AZITHROMYCIN 250 MG TAB PO ONE ×2 (00:04→00:08)
[2018-05-12 00:05] VITALS: TEMP 98.7
[2018-05-12] MEDS ORDERED: SULFAMETHOXAZOLE/TRIMETHOPRI 800/160 MG PO ONE (00:08)
[2018-05-12] MEDS ORDERED: AZITHROMYCIN 250 MG TAB ONE (00:13)
[2018-05-12] MEDS ORDERED: SULFAMETHOXAZOLE/TRIMETHOPRI 800/160 MG ONE (00:13)
[2018-05-12 00:27] VITALS: O2SAT 91
[2018-05-12 00:37] VITALS: BP 91/56; PULSE 104; RESP 30
== END 2018-05-12 00:52 | disposition home or self-care (01) | DRG 204 ==
LOC: ED 23:22
DX: R06.02 Shortness of breath (principal); J44.1 Chronic obstructive pulmonary disease with (acute) exacerbation; N39.0 Urinary tract infection, site not specified
CPT/HCPCS: 71045; 96374; 96375; 99283; 99284; J2405; J2930; A9270-GY

== ENCOUNTER 2018-05-23 03:30 | Emergency (ER) | payer OTHER | END 2018-05-23 03:58 | disposition short-term general hospital (02) | LOC: ED 03:30 ==